=== PATIENT | male | born 1955 | race Caucasian/White ===

== ENCOUNTER 2017-02-09 15:20 | Emergency (ER) | payer MEDICARE, MEDICAID ==
[~2017-02-09] VITALS: Ht 190.5 cm; Wt 108.3 kg
[~2017-02-09 15:20] MED LIST: BUPR75TA6 PO; CARB200T13 PO; CITA20TA5 PO; DIAZ5TAB PO; ESZO2TAB34 PO; GABA300C10 PO; LISI30TA4 PO; OXYC10TA6 PO; OXYC30TA66 PO; SULF1TAB24 PO; ZOLP10TA PO
[2017-02-09 15:21] VITALS: BP 149/73
[2017-02-09] MEDS ORDERED: HYDROmorphone 1 MG/ML, 1ML ONE (16:12)
[2017-02-09] MEDS ORDERED: HYDROmorphone 1 MG/ML, 1ML IM ONE (16:30)
== END 2017-02-09 16:57 | disposition home or self-care (01) ==
LOC: ED 16:30
DX: S39.012A Strain of muscle, fascia and tendon of lower back, initial encounter (principal); M54.16 Radiculopathy, lumbar region; I10 Essential (primary) hypertension; X58.XXXA Exposure to other specified factors, initial encounter; Y93.89 Activity, other specified; Y92.89 Other specified places as the place of occurrence of the external cause; Y99.8 Other external cause status
CPT/HCPCS: 96372; 99283; J1170; J7512

== ENCOUNTER 2017-03-10 23:25 | Inpatient (IN) | payer MEDICARE, MEDICAID ==
[2017-03-09 02:45] VITALS: BP 112/62
[~2017-03-10] VITALS: Ht 190.5 cm; Wt 105.2 kg
[2017-03-10] MEDS ORDERED: MORPHINE SULFATE 4 MG/ML, 1ML ONE (23:51)
[2017-03-10] MEDS ORDERED: ONDANSETRON 2MG/ML, 2ML ONE (23:51)
[2017-03-10] MEDS ORDERED: ASPIRIN 81 MG TABLET CHEW ONE (23:51)
[2017-03-11] MEDS ORDERED: ASPIRIN 81 MG TABLET CHEW PO ONE
[2017-03-11] MEDS ORDERED: SODIUM CHLORIDE 0.9% 1,000ML IVBOLUS ONE
[2017-03-11] MEDS ORDERED: ONDANSETRON 2MG/ML, 2ML IVPush ONE
[2017-03-11] MEDS: MORPHINE SULFATE 4 MG/ML, 1ML IVPush PRN ×2 (00:05→01:26)
[2017-03-11 00:31] LABS: ASPARTATE AMINO TRANSFERASE 23 U/L (15-37); BLOOD UREA NITROGEN 30 mg/dL (7-18)
[2017-03-11 00:47] LABS: IS PT STATUS REG ER OR PRE ER? YES
[2017-03-11] MEDS ORDERED: OMNIPAQUE 350 MG/ML, 100ML BOTTLE ONE (00:55)
[2017-03-11] MEDS ORDERED: CEFTRIAXONE PMX 1GM/50ML 50 ML ONE (01:19)
[2017-03-11] MEDS ORDERED: MORPHINE SULFATE 4 MG/ML, 1ML ONE (01:26)
[2017-03-11] MEDS ORDERED: CEFTRIAXONE PMX 1GM/50ML 50 ML IV ONE (01:30)
[2017-03-11] MEDS ORDERED: AZITHROMYCIN 500 MG in SODIUM CHLORIDE 0.9% 250 ML IV ONE (01:30)
[2017-03-11] MEDS ORDERED: SODIUM CHLORIDE 0.9% 1,000 ML IV ONE (02:04)
[2017-03-11] MEDS ORDERED: ACETAMINOPHEN 325 MG TABLET PO ONE (02:30)
[2017-03-11] MEDS ORDERED: ONDANSETRON 2MG/ML, 2ML IVPush PRN ×2 (02:30)
[2017-03-11] MEDS ORDERED: ENALAPRILAT 1.25 MG/ML, 2ML IVPush PRN (02:30)
[2017-03-11] MEDS ORDERED: hydrALAzine 20 MG/ML, 1ML IVPush PRN (02:30)
[2017-03-11] MEDS ORDERED: morphine SULFATE 10 MG/ML, 1ML IVPush PRN (02:30)
[2017-03-11] MEDS ORDERED: BISACODYL 10 MG SUPP PR PRN (02:30)
[2017-03-11] MEDS ORDERED: MORPHINE SULFATE 4 MG/ML, 1ML IVPush PRN (02:30)
[2017-03-11] MEDS ORDERED: ACETAMINOPHEN 325 MG TABLET PO PRN (02:30)
[2017-03-11] MEDS: NICOTINE 14MG/24 HR PATCH.TD24 TD SCH (02:30)
[2017-03-11] MEDS ORDERED: POLYETHYLENE GLYCOL 17 GM PACKET PO PRN (02:30)
[2017-03-11] MEDS: HEPARIN 5,000 UNITS/ML, 1ML SQ SCH ×4 (03:00→17:53)
[2017-03-11] MEDS ORDERED: ALBUTEROL/IPRATROPIUM 2.5MG/0.5MG, 3 ML NPPB PRN ×2 (03:30)
[2017-03-11] MEDS: SODIUM CHLORIDE 0.9% 1,000 ML IV SCH ×3 (04:14→20:21)
[2017-03-11] MEDS: AZITHROMYCIN 500 MG in SODIUM CHLORIDE 0.9% 250 ML IV SCH (04:14)
[2017-03-11 06:41] VITALS: BP 90/55
[2017-03-11] MEDS: LISINOPRIL 10 MG TABLET PO SCH (07:57)
[2017-03-11] MEDS: GUAIFENESIN 200 MG TABLET PO SCH ×2 (08:09→20:21)
[2017-03-11] MEDS: SENNA/DOCUSATE TABLET PO SCH (08:09)
[2017-03-11] MEDS: BUPROPION 75 MG TABLET PO SCH (08:09)
[2017-03-11] MEDS: OxyconTIN ER 15 MG TAB.ER PO SCH ×2 (10:50→20:21)
[2017-03-11] MEDS: FLUTICASONE/VILANTEROL 200-25MCG/INH INH SCH (10:50)
[2017-03-11 13:06] VITALS: BP 115/66
[2017-03-11] MEDS: CEFTRIAXONE PMX 1GM/50ML 50 ML IV SCH (15:34)
[2017-03-11] MEDS: OXYcodone IR 5MG TABLET PO PRN (16:42)
[2017-03-11 20:10] VITALS: BP 120/67
[2017-03-11] MEDS ORDERED: ZOLPIDEM 5MG TABLET PO SCH (21:00)
[2017-03-12] MEDS: HEPARIN 5,000 UNITS/ML, 1ML SQ SCH (01:42)
[2017-03-12] MEDS: CEFTRIAXONE PMX 1GM/50ML 50 ML IV SCH (01:42)
[2017-03-12 01:57] VITALS: BP 126/64
[2017-03-12] MEDS: AZITHROMYCIN 500 MG in SODIUM CHLORIDE 0.9% 250 ML IV SCH (02:47)
[2017-03-12 05:53] LABS: ASPARTATE AMINO TRANSFERASE 20 U/L (15-37); BLOOD UREA NITROGEN 19 mg/dL (7-18)
[2017-03-12 07:43] VITALS: BP 115/60
[2017-03-12] MEDS: BUPROPION 75 MG TABLET PO SCH (07:55)
[2017-03-12] MEDS: GUAIFENESIN 200 MG TABLET PO SCH (07:56)
[2017-03-12] MEDS: LISINOPRIL 10 MG TABLET PO SCH ×2 (07:57→09:21)
[2017-03-12] MEDS: SENNA/DOCUSATE TABLET PO SCH (07:58)
[2017-03-12] MEDS: FLUTICASONE/VILANTEROL 200-25MCG/INH INH SCH (07:58)
[2017-03-12] MEDS: OXYcodone IR 5MG TABLET PO PRN (07:58)
[2017-03-12] MEDS: NICOTINE 14MG/24 HR PATCH.TD24 TD SCH (09:00)
[2017-03-12] MEDS: OxyconTIN ER 15 MG TAB.ER PO SCH (09:20)
[2017-03-12] MEDS ORDERED: AZIT500T77 PO (09:22)
[2017-03-12] MEDS ORDERED: CEFD300C37 PO (09:22)
== END 2017-03-12 10:00 | disposition home or self-care (01) | DRG 871 ==
LOC: ED 23:59 → EDIP 03-11 02:04 → 4WST 03-11 02:50 → DCLOUNGE 03-12 09:50
PROVIDERS: ADMIT Internal Medicine; ATTEND Family Medicine
DX: A41.9 Sepsis, unspecified organism (principal); N17.0 Acute kidney failure with tubular necrosis; J15.9 Unspecified bacterial pneumonia; J44.1 Chronic obstructive pulmonary disease with (acute) exacerbation; J44.0 Chronic obstructive pulmonary disease with (acute) lower respiratory infection; I10 Essential (primary) hypertension; M54.9 Dorsalgia, unspecified; G89.29 Other chronic pain; G47.00 Insomnia, unspecified; I25.2 Old myocardial infarction; Z88.0 Allergy status to penicillin; Z79.82 Long term (current) use of aspirin
CPT/HCPCS: 36415; 71275; 80053; 80061; 83605; 83735; 84145; 84439; 84443; 84484; 85025; 87040; 87070; 87077; 87107; 87181; 87205; 93005; 96361; 96365; 96375; J0456; J0696; J1644; J2405; Q9967; J7030; J7050

== ENCOUNTER 2017-04-27 15:17 | Emergency (ER) | payer MEDICARE, MEDICAID ==
[~2017-04-27] VITALS: Ht 190.5 cm; Wt 110.0 kg
[~2017-04-27 15:17] MED LIST changes: +AZIT500T77 PO; +CEFD300C37 PO
[2017-04-27 15:19] VITALS: BP 123/63
[2017-04-27 16:10] LABS: HEMATOCRIT 38.8 % (39.2-51.8); HEMOGLOBIN 12.8 g/dL (13.7-18.0); WHITE BLOOD COUNT 6.2 x10^3/uL (3.4-10)
[2017-04-27 16:22] LABS: BLOOD UREA NITROGEN 12 mg/dL (7-18)
[2017-04-27 16:25] LABS: ASPARTATE AMINO TRANSFERASE 42 U/L (15-37)
== END 2017-04-27 18:09 | disposition home or self-care (01) ==
LOC: ED 16:10
DX: R10.9 Unspecified abdominal pain (principal); I10 Essential (primary) hypertension
CPT/HCPCS: 36415; 80053; 81003; 85025; 99284

== ENCOUNTER 2017-11-16 20:50 | Emergency (ER) | payer MEDICARE ==
[~2017-11-16 20:50] MED LIST changes: +AZIT500T5 PO; -AZIT500T77 PO; +ESZO2TAB22 PO; -ESZO2TAB34 PO
[2017-11-16 21:03] VITALS: BP 190/71
== END 2017-11-16 21:36 | disposition left against medical advice (07) ==
LOC: ED 21:00
DX: R11.2 Nausea with vomiting, unspecified (principal); I10 Essential (primary) hypertension; I25.2 Old myocardial infarction
CPT/HCPCS: 99281